=== PATIENT | female | born 1980 | race Caucasian/White ===

== ENCOUNTER 2024-10-18 05:07 | Emergency (ER) | payer MEDICAID ==
[~2024-10-18] VITALS: Ht 162.6 cm; Wt 137.0 kg
[2024-10-18 05:09] VITALS: O2SAT 98
[2024-10-18] MEDS ORDERED: KETOROLAC 15MG/ML VIAL IM ONE (06:15)
[2024-10-18] MEDS: ACETAMINOPHEN 325MG TABLET PO ONE (06:21)
[2024-10-18] MEDS: KETOROLAC 15MG/ML VIAL IM NR (06:35)
[2024-10-18] MEDS: LIDOCAINE 5% PATCH TOP SCH (06:35)
[2024-10-18 06:36] VITALS: BP 132/88; PULSE 77; RESP 16; TEMP 36.8; O2SAT 98
[2024-10-18] MEDS: ACETAMINOPHEN 325MG TABLET PO NR (06:36)
== END 2024-10-18 07:00 | disposition home or self-care (01) ==
LOC: ER 05:07
DX: G89.29 Other chronic pain (principal); M54.50 Low back pain, unspecified; F31.9 Bipolar disorder, unspecified; Z59.00 Homelessness unspecified
CPT/HCPCS: 99283; 81025; 96372; J1885

== ENCOUNTER 2024-10-18 08:59 | Emergency (ER) | payer MEDICAID ==
[~2024-10-18] VITALS: Ht 152.4 cm; Wt 124.0 kg
[2024-10-18 09:00] VITALS: BP 174/99; TEMP 36.6; O2SAT 99
[2024-10-18 09:04] VITALS: PULSE 88; RESP 18; O2SAT 99
== END 2024-10-18 09:30 | disposition home or self-care (01) ==
LOC: ER 08:59
DX: M54.9 Dorsalgia, unspecified (principal); F31.9 Bipolar disorder, unspecified; E78.00 Pure hypercholesterolemia, unspecified; Z98.890 Other specified postprocedural states
CPT/HCPCS: 99281; 99282

== ENCOUNTER 2024-10-20 00:39 | Emergency (ER) | payer MEDICAID ==
[~2024-10-20] VITALS: Ht 162.6 cm; Wt 114.0 kg
[2024-10-20 01:02] VITALS: BP 148/80; PULSE 90; RESP 16; TEMP 36.4; O2SAT 99
[2024-10-20] MEDS ORDERED: TOPUD MT (01:41)
[2024-10-20] MEDS: ACETAMINOPHEN 325MG TABLET PO ONE (01:51)
== END 2024-10-20 02:03 | disposition home or self-care (01) ==
LOC: ER 00:39
DX: M54.50 Low back pain, unspecified (principal); E78.00 Pure hypercholesterolemia, unspecified; F31.9 Bipolar disorder, unspecified; Z98.890 Other specified postprocedural states; Z79.899 Other long term (current) drug therapy
CPT/HCPCS: 99283

== ENCOUNTER 2024-10-20 16:46 | Inpatient (IN) | payer MEDICAID ==
[~2024-10-20] VITALS: Ht 152.4 cm; Wt 135.2 kg
[~2024-10-20 16:46] MED LIST: TOPUD MT
[2024-10-20 18:57] LABS: HEMATOCRIT 30.5 % (36.0-48.0); HEMOGLOBIN 9.8 g/dL (12.0-16.0); MEAN CORPUSCULAR HEMOGLOBIN 23.5 pg (28.0-32.0); MEAN CORPUSCULAR HGB CONC 32.2 g/dL (31.0-37.0); MEAN CORPUSCULAR VOLUME 73.1 fL (81.0-99.0); PLATELET 242 x1000/uL (130-400); RED BLOOD CELL COUNT 4.18 mill/uL (4.2-5.4); WHITE BLOOD COUNT 9.4 x1000/uL (4.5-11.0)
[2024-10-20 19:06] LABS: CHLORIDE 109 mEq/L (98-107); POTASSIUM 4.1 mEq/L (3.5-5.1); SODIUM 143 mEq/L (136-145)
[2024-10-20] MEDS: MORPHINE SULFATE 4 MG/ML INJ (FOR IV/IM USE) IV ONE (19:06)
[2024-10-20 19:07] LABS: CALCIUM 9.2 mg/dL (8.7-10.4); CARBON DIOXIDE 25 mEq/L (21-32)
[2024-10-20 19:12] LABS: CREATININE 0.8 mg/dL (0.6-1.0); GLUCOSE 126 mg/dL (70-105); UREA NITROGEN BLOOD 14 mg/dL (9-23)
[2024-10-20 19:14] LABS: ALANINE AMINOTRANSFERASE 11 IU/L (10-49); ALBUMIN 4.3 g/dL (3.2-4.8); ASPARTATE AMINOTRANSFERASE 10 IU/L (<34); BILIRUBIN TOTAL 0.2 mg/dL (0.1-1.0); PROTEIN TOTAL 6.4 g/dL (6.0-8.3)
[2024-10-20] MEDS ORDERED: CLONIDINE 0.1MG TABLET PO PRN (22:45)
[2024-10-20] MEDS ORDERED: IBUPROFEN 400MG TABLET PO PRN (22:45)
[2024-10-20] MEDS ORDERED: DOCUSATE SODIUM 100MG CAPSULE PO PRN (22:45)
[2024-10-20] MEDS ORDERED: MAGNESIUM/ALUMINUM HYDROXIDE/SIMETHICONE 30ML UDC PO PRN (22:45)
[2024-10-20] MEDS ORDERED: GUAIFENESIN 200MG/10ML SUGAR FREE UDC PO PRN (22:45)
[2024-10-20] MEDS ORDERED: ONDANSETRON HCL 4MG/2ML INJ IV PRN (22:45)
[2024-10-21] VITALS (7 sets, daily range): BP systolic 110–137; BP diastolic 55–86; PULSE 52–94; RESP 15–19; TEMP 35.9–36.7; O2SAT 95–99
[2024-10-21 00:43] LABS: IRON 36 ug/dL (50-170)
[2024-10-21 00:46] LABS: TOTAL IRON BINDING CAPACITY 350 ug/dl (250-425)
[2024-10-21 00:48] LABS: THYROID STIMULATING HORMONE 5.04 uIU/mL (0.55-4.78)
[2024-10-21] MEDS: ACETAMINOPHEN 325MG TABLET PO PRN (06:09)
[2024-10-21] MEDS: LEVOTHYROXINE SODIUM 50MCG TABLET PO SCH (06:15)
[2024-10-21] MEDS ORDERED: LEVOTHYROXINE SODIUM 25MCG TABLET PO SCH (06:40)
[2024-10-21] MEDS: METFORMIN HCL 500MG TABLET PO SCH (06:56)
[2024-10-21 07:36] LABS: FOLIC ACID (FOLATE) SERUM 14.62 ng/mL (>5.38)
[2024-10-21 07:37] LABS: FERRITIN 14 ng/mL (10-291); VITAMIN B12 SERUM 500 pg/mL (211-911)
[2024-10-21] MEDS: FAMOTIDINE 20MG TABLET PO SCH (08:55)
[2024-10-21] MEDS: DIVALPROEX SODIUM 500MG DR TABLET PO SCH (08:55)
[2024-10-21] MEDS ORDERED: HYDROXYZINE 25MG TABLET PO PRN (10:00)
[2024-10-21] MEDS: QUETIAPINE FUMARATE 50MG TABLET PO SCH (13:00)
[2024-10-21] MEDS ORDERED: TRAZODONE HCL 50MG TABLET PO PRN (21:00)
[2024-10-22] VITALS: BP 102/40; PULSE 99; RESP 18; TEMP 36.2; O2SAT 94
[2024-10-22 04:00] VITALS: BP 101/41; PULSE 94; RESP 18; TEMP 36.2; O2SAT 100
[2024-10-22 07:15] LABS: CARBON DIOXIDE 28 mEq/L (21-32); CHLORIDE 105 mEq/L (98-107); POTASSIUM 4.1 mEq/L (3.5-5.1); SODIUM 143 mEq/L (136-145)
[2024-10-22 07:17] LABS: CALCIUM 9.3 mg/dL (8.7-10.4)
[2024-10-22 07:21] LABS: CREATININE 0.6 mg/dL (0.6-1.0); GLUCOSE 118 mg/dL (70-105); UREA NITROGEN BLOOD 12 mg/dL (9-23)
[2024-10-22 07:36] LABS: BASOPHILS % 0.4 % (0.0-2.0); EOSINOPHILS % 4.3 % (0.0-5.0); HEMATOCRIT. 32.7 % (36.0-48.0); HEMOGLOBIN. 10.4 g/dL (12.0-16.0); LYMPHOCYTES % 23.8 % (20.0-50.0); MEAN CORPUSCULAR HEMOGLOBIN 23.1 pg (28.0-32.0); MEAN CORPUSCULAR HGB CONC 31.9 g/dL (31.0-37.0); MEAN CORPUSCULAR VOLUME 72.6 fL (81.0-99.0); MONOCYTES % 6.8 % (2.0-8.0); NEUTROPHILS % 64.7 % (40.0-76.0); PLATELET 225 x1000/uL (130-400); RED BLOOD CELL COUNT 4.51 mill/uL (4.2-5.4); RED CELL DISTRIBUTION WIDTH 24.3 % (11.6-14.6); WHITE BLOOD COUNT 7.9 x1000/uL (4.5-11.0)
[2024-10-22 08:00] VITALS: BP 128/95; PULSE 87; RESP 14; TEMP 36.3; O2SAT 95
[2024-10-22 08:23] LABS: ADD RBC MORPHOLOGY YES; DIFFERENTIAL COMMENT 1
[2024-10-22] MEDS ORDERED: IBUP-2028 PO (10:49)
[2024-10-22 11:14] LABS: GIANT PLATELETS FEW; PLATELET ESTIMATE NORMAL
[2024-10-22 11:15] LABS: ANISOCYTOSIS 3+; HYPOCHROMASIA 1+; MICROCYTOSIS 2+
[2024-10-22 12:00] VITALS: BP 121/70; PULSE 89; RESP 15; TEMP 36.3; O2SAT 96
[2024-10-22 14:10] VITALS: BP 121/70; PULSE 89; TEMP 97.3; O2SAT 96
== END 2024-10-22 15:33 | disposition home or self-care (01) | DRG 347 ==
LOC: ER 16:46 → 7EST 20:35 → EDBEDREQTM 20:43 → EDBEDREQ 20:43 → ENRESERV 21:31
PROVIDERS: ADMIT Internal Medicine; ATTEND Internal Medicine
PROC: GZ56ZZZ Individual Psychotherapy, Supportive (ICD-10-PCS; principal; 2024-10-21)
DX: M51.369 Other intervertebral disc degeneration, lumbar region without mention of lumbar back pain or lower extremity pain (principal); Z68.43 Body mass index [BMI] 50.0-59.9, adult; D50.9 Iron deficiency anemia, unspecified; E11.65 Type 2 diabetes mellitus with hyperglycemia; E03.9 Hypothyroidism, unspecified; E78.00 Pure hypercholesterolemia, unspecified; E66.9 Obesity, unspecified; M54.9 Dorsalgia, unspecified; F43.10 Post-traumatic stress disorder, unspecified; G89.29 Other chronic pain; F31.32 Bipolar disorder, current episode depressed, moderate; G40.909 Epilepsy, unspecified, not intractable, without status epilepticus; Z79.84 Long term (current) use of oral hypoglycemic drugs; Z98.891 History of uterine scar from previous surgery
CPT/HCPCS: 36415; 72100; 80048; 80053; 82607; 82728; 82746; 83036; 83540; 83550; 84443; 85025; 85027; 93970; 97162; 97166; 99285; A4606; J2270

== ENCOUNTER 2024-10-24 01:50 | Emergency (ER) | payer MEDICAID ==
[~2024-10-24] VITALS: Ht 162.6 cm; Wt 90.0 kg
[~2024-10-24 01:50] MED LIST changes: +IBUP-2028 PO
[2024-10-24 01:53] VITALS: O2SAT 98
[2024-10-24] MEDS ORDERED: IBUP-2029 MT (02:37)
[2024-10-24 02:57] VITALS: BP 142/67; PULSE 87; RESP 20; TEMP 36.5; O2SAT 97
[2024-10-24] MEDS: KETOROLAC 30MG/ML VIAL IM ONE (03:00)
== END 2024-10-24 03:02 | disposition home or self-care (01) ==
LOC: ER 01:50
DX: G89.29 Other chronic pain (principal); M25.562 Pain in left knee; M25.561 Pain in right knee; F41.9 Anxiety disorder, unspecified; Z76.0 Encounter for issue of repeat prescription; Z98.890 Other specified postprocedural states
CPT/HCPCS: 99283; 81025; 96372; J1885

== ENCOUNTER 2024-12-14 17:19 | Emergency (ER) | payer MEDICAID ==
[~2024-12-14] VITALS: Ht 157.5 cm; Wt 95.0 kg
[~2024-12-14 17:19] MED LIST changes: +IBUP-2029 MT
[2024-12-14 17:35] VITALS: O2SAT 98
[2024-12-14 18:34] LABS: BASOPHILS % 0.3 % (0.0-2.0); EOSINOPHILS % 0.2 % (0.0-5.0); HEMATOCRIT. 35.2 % (36.0-48.0); HEMOGLOBIN. 11.6 g/dL (12.0-16.0); LYMPHOCYTES % 18.4 % (20.0-50.0); MEAN PLATELET VOLUME 7.7 fl (7.4-10.4); MONOCYTES % 6.4 % (2.0-8.0); NEUTROPHILS % 74.7 % (40.0-76.0); PLATELET 220 x1000/uL (130-400); RED BLOOD CELL COUNT 4.43 mill/uL (4.2-5.4); RED CELL DISTRIBUTION WIDTH 20.5 % (11.6-14.6)
[2024-12-14] MEDS: OLANZAPINE 10MG TABLET PO ONE (18:36)
[2024-12-14 18:47] LABS: CREATININE 0.7 mg/dL (0.6-1.0); UREA NITROGEN BLOOD 9 mg/dL (9-23)
[2024-12-14] MEDS: DIPHENHYDRAMINE 50MG/ML VIAL IM ONE (20:28)
[2024-12-14] MEDS: KETOROLAC 30MG/ML VIAL IM ONE (20:58)
[2024-12-14 21:05] VITALS: BP 115/80; PULSE 88; RESP 16; TEMP 37.2; O2SAT 98
[2024-12-15] MEDS ORDERED: P50 PO (06:13)
== END 2024-12-14 21:06 | disposition home or self-care (01) ==
LOC: ER 17:19
DX: L03.116 Cellulitis of left lower limb (principal); F31.9 Bipolar disorder, unspecified; F41.9 Anxiety disorder, unspecified; Z76.0 Encounter for issue of repeat prescription; Z79.899 Other long term (current) drug therapy
CPT/HCPCS: 80048; 81025; 85025; 36415; 96372; 99284; J1200; J1885; Z7610

== ENCOUNTER 2024-12-15 05:34 | Emergency (ER) | payer MEDICAID ==
[~2024-12-15] VITALS: Ht 162.6 cm; Wt 114.0 kg
[2024-12-15 05:37] VITALS: TEMP 37.1; O2SAT 99
[2024-12-15] MEDS ORDERED: P50 PO (06:13)
[2024-12-15 06:24] VITALS: BP 144/84; PULSE 95; RESP 18; O2SAT 100
== END 2024-12-15 06:28 | disposition home or self-care (01) ==
LOC: ER 05:34
DX: L50.9 Urticaria, unspecified (principal); F31.9 Bipolar disorder, unspecified; Z76.0 Encounter for issue of repeat prescription
CPT/HCPCS: 99283

== ENCOUNTER 2024-12-20 05:53 | Emergency (ER) | payer MEDICAID ==
[~2024-12-20] VITALS: Ht 162.6 cm; Wt 114.0 kg
[~2024-12-20 05:53] MED LIST changes: +P50 PO
[2024-12-20 05:59] VITALS: BP 136/84; PULSE 66; RESP 14; TEMP 36.7; O2SAT 99
[2024-12-20 06:25] LABS: CLARITY URINE TURBID (CLEAR); COLOR URINE YELLOW (YELLOW); GLUCOSE URINE NEGATIVE (NEGATIVE); KETONES URINE NEGATIVE (NEGATIVE); LEUKOCYTE ESTERASE URINE NEGATIVE (NEGATIVE); NITRITE URINE NEGATIVE (NEGATIVE); OCCULT BLOOD URINE NEGATIVE (NEGATIVE); PH URINE 6.5 (4.5-8.0); PROTEIN URINE NEGATIVE (NEGATIVE); SPECIFIC GRAVITY URINE 1.010 (1.005-1.030); UROBILINOGEN URINE 0.2 E.U./dL (0.2-1.0)
[2024-12-20 08:21] LABS: SQUAMOUS EPITHELIAL CELL URINE 1+ /lpf (RARE/1+)
[2024-12-20 08:22] LABS: BACTERIA URINE 4+; WBC URINE 0-2 /hpf (0-2)
[2024-12-20 08:24] LABS: RBC URINE NONE SEEN /hpf (0-2)
[2024-12-25] MEDS ORDERED: OLAN10TA72 MT ×2 (08:25→14:13)
== END 2024-12-20 06:51 | disposition home or self-care (01) ==
LOC: ER 05:53
DX: R32 Unspecified urinary incontinence (principal); F31.9 Bipolar disorder, unspecified; F41.9 Anxiety disorder, unspecified; Z79.52 Long term (current) use of systemic steroids; Z79.899 Other long term (current) drug therapy
CPT/HCPCS: 81003; 99283

== ENCOUNTER 2024-12-20 07:31 | Emergency (ER) | payer MEDICAID ==
[2024-12-20 07:39] VITALS: PULSE 99; RESP 18; O2SAT 95
[2024-12-25] MEDS ORDERED: OLAN10TA72 MT ×2 (08:25→14:13)
== END 2024-12-20 08:00 | disposition left against medical advice (07) ==
LOC: ER 07:31
DX: R30.9 Painful micturition, unspecified (principal); Z53.21 Procedure and treatment not carried out due to patient leaving prior to being seen by health care provider